=== PATIENT | female | born 1955 | race Caucasian/White ===

== ENCOUNTER 2022-12-28 08:37 | Day surgery (SDC) | payer MEDICARE, OTHER ==
[2022-12-28] MEDS ORDERED: Moxifloxacin 0.5% Ophth Soln 3 ML Bottle EYERT ONE (09:00)
[2022-12-28] MEDS ORDERED: Ondansetron 4 MG/2 ML SDV IVPUSH PRN (09:00)
[2022-12-28] MEDS ORDERED: Cataract Ophth Solution EYERT ONE (09:00)
[2022-12-28] MEDS ORDERED: Povidone-Iodine 5% Sterile Ophth Soln 30 ML Bottle EYERT ONE ×2 (09:00→09:55)
[2022-12-28] MEDS ORDERED: Tropicamide 1% Ophth Soln 15 ML Bottle EYERT ONE (09:00)
[2022-12-28] MEDS ORDERED: Phenylephrine 10% Ophth Soln 5 ML Bot EYERT PRN (09:00)
[2022-12-28] MEDS ORDERED: Acetaminophen 325 MG Tab PO PRN (09:00)
[2022-12-28] MEDS ORDERED: Acetaminophen/Codeine 300-30 MG Tab PO PRN (09:00)
[2022-12-28] MEDS ORDERED: Timolol Maleate 0.5% Ophth Soln 5 ML Bottle EYERT ONE (09:00)
[2022-12-28] MEDS ORDERED: Proparacaine 0.5% Ophth Soln 15 ML Bottle EYERT ONE ×2 (09:00→09:55)
[2022-12-28] MEDS ORDERED: Sodium Chloride 0.9% 10 ML Syringe FLUSH PRN (09:00)
[2022-12-28] MEDS ORDERED: Lidocaine 1% 30 ML SDV ONE (09:55)
[2022-12-28] MEDS ORDERED: Balanced Salt Solution Plus Ophth Irrig 500 ML Bottle EYERT ONE (09:55)
[2022-12-28] MEDS ORDERED: Apraclonidine 0.5% Ophth Soln 5 ML Bot EYERT ONE (09:55)
[2022-12-28] MEDS ORDERED: Tobramycin 0.3% Ophth Oint 3.5 GM Tube EYERT ONE (09:56)
[2022-12-28] MEDS ORDERED: Vancomycin 500 MG SDV EYERT ONE (09:56)
== END 2022-12-28 10:35 | disposition home or self-care (01) ==
LOC: DL.SDS 08:37
PROVIDERS: ATTEND Ophthalmology
DX: H25.811 Combined forms of age-related cataract, right eye (principal); I10 Essential (primary) hypertension; E03.9 Hypothyroidism, unspecified; M81.0 Age-related osteoporosis without current pathological fracture; Z79.890 Hormone replacement therapy; Z79.899 Other long term (current) drug therapy; Z88.5 Allergy status to narcotic agent; Z88.8 Allergy status to other drugs, medicaments and biological substances
CPT/HCPCS: 00142; A9270-GY; J3370; J3490